=== PATIENT | male | born 2000 | race Caucasian/White ===

== ENCOUNTER 2022-05-05 23:11 | Emergency (ER) | payer SELFPAY ==
[2022-05-05 23:20] VITALS: BP 128/66
--- NOTE | 2022-05-05 23:59 | XRay Report ---
RIGHT KNEE 4 VIEW(S) INDICATION / CLINICAL INFORMATION: fall COMPARISON: None available. FINDINGS: BONES / JOINT(S): No acute fracture or subluxation. No significant arthritis. Small suprapatellar nicole nt effusion. SOFT TISSUES: No significant abnormality. ADDITIONAL FINDINGS: None. IMPRESSION: 1. Small suprapatellar joint effusion without fracture or other acute osseous process. Signer Name: Dinesh Sim MD Signed: 05/05/2022 11:54 PM Workstation Name: [id number]
--- NOTE | 2022-05-06 01:46 | Emergency Department Report ---
ED Fall HPI - General Chief Complaint: Extremity Injury, Lower Stated Complaint: LEG/KNEE Time Seen by Provider: 05/06/22 01:39 Source: patient Mode of arrival: Ambulatory - History of Present Illness Initial Comments: Patient presents with right knee pain. X2 days. Reports he was wrestling with another person when he thinks he may have injured his knee. States he woke up suddenly began transient pain in his knee, difficulty walking. He denies history of prior knee injuries, pain is worse with ambulating. No weakness numbness or tingling or paresthesias of the extremity. Otherwise 10 point ROS negative except for those identified in HPI - Related Data Previous Rx's Medication Instructions Recorded Last Taken Type Naproxen [Naprosyn] 375 mg PO BID PRN #20 tablet 05/06/22 Unknown Rx Allergies Allergy/AdvReac Type Severity Reaction Status Date / Time No Known Allergies Allergy Unverified 05/05/22 23:18 ED Review of Systems ROS: Stated complaint: LEG/KNEE Other details as noted in HPI Constitutional: see HPI ENT: as per HPI Respiratory: denies: cough Cardiovascular: denies: chest pain, dyspnea on exertion Endocrine: denies: intolerance to cold, intolerance to heat Gastrointestinal: denies: abdominal pain, nausea, vomiting Musculoskeletal: joint swelling, arthralgia Skin: denies: rash Neurological: denies: headache, weakness Psychiatric: denies: anxiety, visual hallucinations, homicidal thoughts, suicidal thoughts ED Past Medical Hx - Medications Home Medications: Home Medications Medication Instructions Recorded Confirmed Last Taken Type Naproxen [Naprosyn] 375 mg PO BID PRN #20 tablet 05/06/22 Unknown Rx ED Physical Exam - General Limitations: Physical Limitation General appearance: alert, in no apparent distress - Head Head exam: Present: atraumatic - Eye Eye exam: Present: normal appearance - ENT ENT exam: Present: normal exam, normal orophraynx - Neck Neck exam: Present: normal inspection. Absent: tenderness - Respiratory Respiratory exam: Present: normal lung sounds bilaterally - Cardiovascular Cardiovascular Exam: Present: regular rate, normal rhythm - GI/Abdominal GI/Abdominal exam: Present: soft. Absent: tenderness - Extremities Exam Extremities exam: Present: tenderness, normal capillary refill, joint swelling. Absent: full ROM - Expanded Lower Extremity Exam Right Knee exam: Present: tenderness, swelling, effusion. Absent: dislocation, erythema Neuro vascular tendon exam: Absent: pulse deficit, abnormal cap refill 1 - patellar ttp, effusion - Back Exam Back exam: Present: normal inspection, full ROM - Neurological Exam Neurological exam: Present: alert, oriented X3, CN II-XII intact. Absent: motor sensory deficit - Psychiatric Psychiatric exam: Present: normal affect, normal mood - Skin Skin exam: Present: warm, dry, intact, normal color ED Course Vital Signs 05/05/22 23:14 Temperature 99.1 F Pulse Rate 75 Respiratory 16 Rate Blood Pressure 128/66 [Right] O2 Sat by Pulse 100 Oximetry ED Medical Decision Making - Radiology Data IMPRESSION: 1. Small suprapatellar joint effusion without fracture or other acute osseous process. - Medical Decision Making Patient presents with right knee pain. X2 days. Reports he was wrestling with another person when he thinks he may have injured his knee. States he woke up suddenly began transient pain in his knee, difficulty walking. He denies history of prior knee injuries, pain is worse with ambulating. No weakness numbness or tingling or paresthesias of the extremity. Otherwise 10 point ROS negative except for those identified in HPI Neurovascularly intact, mild effusion and exam, no hematoma, no dislocation, no fracture. Discharged home with knee immobilize, crutch, and states Ortho referral. Patient remained stable nontoxic-appearing, afebrile, ambulating steadily without assistance. Gone over ED findings with patient as well as plan for follow-up. Also discussed return precautions with patient, all questions and concerns addressed. Patient is stable to be discharged follow-up outpatient. Audio voice dictation device used, hence the chart might contain some dictation errors, mispronunciations, wrong spelling and wrong verbiage. Critical care attestation.: If time is entered above; I have spent that time in minutes in the direct care of this critically ill patient, excluding procedure time. ED Disposition Clinical Impression: Knee pain, Knee effusion Disposition: HOME / SELF CARE / HOMELESS Is pt being admited?: No Does the pt Need Aspirin: No Condition: Stable Instructions: Knee Effusion Prescriptions: Naproxen [Naprosyn] 375 mg PO BID PRN #20 tablet PRN Reason: Pain , Severe (7-10) Referrals: SUNNY DIAMOND MD [Staff Physician] - 3-5 Days
[2022-05-06] MEDS ORDERED: IBUPROFEN 800 MG TAB PO ONE (01:59)
[2022-05-06] MEDS ORDERED: HYDROcodone/ACETAMINOPHEN 5-325 MG TAB PO ONE (01:59)
== END 2022-05-06 02:00 | disposition home or self-care (01) ==
LOC: ED 23:11
DX: M25.561 Pain in right knee (principal); M25.461 Effusion, right knee
CPT/HCPCS: 99283